=== PATIENT | male | born 1990 | race Caucasian/White ===

== ENCOUNTER 2020-08-08 19:33 | Emergency (ER) | payer OTHER ==
[~2020-08-08] VITALS: Ht 172.7 cm; Wt 84.3 kg
[2020-08-08] MEDS ORDERED: LIDOCAINE-MPF 1%, 5ML ONE (20:25)
[2020-08-08] MEDS ORDERED: DIPH,PERTUSS(ACELL),TET VAC/PF 0.5 ML IM-VACC ONE ×2 (20:25→20:30)
[2020-08-08] MEDS ORDERED: LIDOCAINE-MPF 1%, 5ML INFIL ONE (20:30)
--- NOTE | 2020-08-08 20:38 | NUR ---
Irrigated and washed wound.
--- NOTE | 2020-08-08 20:55 | NUR ---
Stitches done, dressing applied, pt agrees with and understands discharge plan and instructions, will follow up with signs of infection or in 1 week for stitches removal.
[2020-08-08 20:56] VITALS: BP 124/79
--- NOTE | 2020-08-08 20:59 | NUR ---
Tdap information sheet provided to pt.
== END 2020-08-08 21:18 | disposition home or self-care (01) ==
LOC: ED 21:05
DX: S81.811A Laceration without foreign body, right lower leg, initial encounter (principal); X58.XXXA Exposure to other specified factors, initial encounter; Y93.89 Activity, other specified; Y92.89 Other specified places as the place of occurrence of the external cause; Y99.8 Other external cause status
CPT/HCPCS: 12001; 90471; 90715; 99283

== ENCOUNTER 2020-08-15 14:50 | Emergency (ER) | payer OTHER ==
[~2020-08-15] VITALS: Ht 172.7 cm; Wt 84.4 kg
[2020-08-15 14:52] VITALS: BP 126/81
--- NOTE | 2020-08-15 15:03 | NUR ---
PT PRESENTING TO ED FOR STITCH REMOVAL. PT HAD 5 STITCHES PLACED ON RIGHT CALF LAST WEEK. 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 POSITIVE CMS TO EXT.
--- NOTE | 2020-08-15 15:24 | NUR ---
PT REC'VD DISCHARGE INSTRUCTIONS AND EDUCATION. PT HAD NO QUESTIONS. PT AMBULATED OT DC AREA, STEADY GAIT.
== END 2020-08-15 15:36 | disposition home or self-care (01) ==
LOC: ED 15:25
DX: S81.811D Laceration without foreign body, right lower leg, subsequent encounter (principal); X58.XXXD Exposure to other specified factors, subsequent encounter
CPT/HCPCS: 99281